=== PATIENT | male | born 1930 | race Caucasian/White ===

== ENCOUNTER → 2017-11-05 | Outpatient (CLI) | payer OTHER ==
[~2017-11-05] MED LIST: (None)64.8 MG PT; ACET325 PO; ALBU90OI INH; ALUMAG30SU PO; ASCO500 PO; ASPI81EC PO; AZIT250 PO; BISA10S PR; CALCAVITD PO; CEFU250 PO; CHOL10002 PO; CIPR500 PO; CITA20 PO; CVS DISPOSABLE399 ML PR; EXELON1 EACH TD; FERR325 PO; GABA100 PO; LEVFLO500 PO; LOPE2C PO; LORA.5 PO; MELA3 PO; METO25 PO; METO25ER PO; METR500 PO; MULVITMIND PO; Milk Of Ma400 MG/5 M PO; NAMENDA XR28 MG PO; NUEDEXTA 20-101 EACH PO; PHENO15 PO; PHENOBARBITAL PO; PHENY100ER PO; PHENY50CH PO; PROM25 PO; QUET25 PO; SACC250C PO; SIMV10 PO; SIMV40 PO; TRAZ50 PO; TRIHYD253B PO; TRIHYD5075 PO; Zithromax250 MG PO; [UNRECOGNIZED DRUG - REMARK]
[2017-11-06 14:12] LABS: Source, Urine Clean Catch
[2017-11-06 14:26] LABS: Appearance, Urine Clear (Clear); Bilirubin, Urine Neg (Neg); Blood, Urine 1+ (Neg); Color, Urine Yellow (P-Yellow); Glucose Qualitative, Urine Neg (Neg); Ketones, Urine Neg (Neg); Leukocyte Esterase, Urine Neg (Neg); Nitrite, Urine Neg (Neg); Protein, Urine 1+ (Neg); Specific Gravity, Urine 1.015 (1.003-1.022); Urobilinogen, Urine NORM (Normal); pH, Urine 6.5 (5.0-8.0)
[2017-11-06 14:50] LABS: Bacteria Few /hpf; Squamous Epithelial Cells Rare /hpf (Few); White Blood Cells, Urine 0-2 /hpf (0-5)
== END ==
LOC: LAB SHORT 20:50 → LAB 20:50
PROVIDERS: Family Medicine
DX: N39.0 Urinary tract infection, site not specified (principal)
CPT/HCPCS: 81001

== ENCOUNTER → 2017-12-13 | Outpatient (CLI) | payer OTHER ==
[~2017-12-13] MED LIST changes: -LEVFLO500 PO; -METR500 PO
[2017-12-14 15:55] LABS: Source, Urine Clean Catch
[2017-12-14 16:05] LABS: Appearance, Urine Clear (Clear); Bilirubin, Urine Neg (Neg); Blood, Urine 2+ (Neg); Color, Urine Yellow (P-Yellow); Glucose Qualitative, Urine Neg (Neg); Ketones, Urine Neg (Neg); Leukocyte Esterase, Urine Neg (Neg); Nitrite, Urine Neg (Neg); Protein, Urine 1+ (Neg); Specific Gravity, Urine 1.015 (1.003-1.022); Urobilinogen, Urine NORM (Normal); pH, Urine 6.5 (5.0-8.0)
[2017-12-14 16:38] LABS: Bacteria Not Seen /hpf; Red Blood Cells, Urine 0-2 /hpf (0-2); Squamous Epithelial Cells Not Seen /hpf (Few); White Blood Cells, Urine Not Seen /hpf (0-5)
== END | disposition home or self-care (01) ==
LOC: LAB SHORT 15:00 → LAB 15:00
PROVIDERS: Family Medicine
DX: N39.0 Urinary tract infection, site not specified (principal); F03.90 Unspecified dementia, unspecified severity, without behavioral disturbance, psychotic disturbance, mood disturbance, and anxiety
CPT/HCPCS: 81001

== ENCOUNTER 2018-05-05 13:45 | Inpatient (IN) | payer OTHER ==
[~2018-05-05] VITALS: Ht 177.8 cm; Wt 83.8 kg
[2018-05-05] MEDS ORDERED: MELA3 PO (14:11)
[2018-05-05 14:26] LABS: BASOPHILS ABSOLUTE AUTO 0.03 K/mm3 (0.00-0.23); BASOPHILS PERCENT AUTO 0 % (0-2); EOSINOPHILS ABSOLUTE AUTO 0.06 K/mm3 (0.00-0.68); EOSINOPHILS PERCENT AUTO 1 % (0-6); Hematocrit 41.7 % (37.0-53.0); Hemoglobin 13.3 g/dL (13.5-17.5); IMMATURE GRAN ABSOLUTE AUTO 0.02 K/mm3 (0.00-0.10); IMMATURE GRAN PERCENT AUTO 0 % (0-1); LYMPHOCYTES ABSOLUTE AUTO 1.13 K/mm3 (0.84-5.20); LYMPHOCYTES PERCENT AUTO 11 % (21-46); MONOCYTES ABSOLUTE AUTO 0.25 K/mm3 (0.16-1.47); MONOCYTES PERCENT AUTO 2 % (4-13); Mean Corpuscular HGB 31.7 pg (26.0-34.0); Mean Corpuscular HGB Conc 31.9 g/dL (31.5-36.5); Mean Corpuscular Volume 99 fL (80-100); NEUTROPHILS ABSOLUTE AUTO 9.27 K/mm3 (1.96-9.15); NEUTROPHILS PERCENT AUTO 86 % (41-73); Platelet Count 183 K/mm3 (150-400); RDW Coefficient Variation 14.4 % (11.7-14.2); RDW Standard Deviation 52.7 fL (35.1-46.3); White Blood Cell Count 10.76 K/mm3 (4.00-11.30)
[2018-05-05 14:40] LABS: Dilantin (Phenytoin), Total 9.6 ug/mL (10.0-20.0)
[2018-05-05 14:41] LABS: Alanine Aminotransfer (ALT/SGP 25 U/L (12-78); Albumin, Blood 3.4 g/dL (3.4-5.0); Albumin/Globulin Ratio 0.7 (0.8-1.8); Alk Phos 155 U/L (50-136); Anion Gap 6 mmol/L (6-16); Aspartate Aminotrans (AST/SGOT 32 U/L (12-37); Bilirubin, Total 0.3 mg/dL (0.1-1.0); Blood Urea Nitrogen 22 mg/dL (8-24); Bun/Creatinine Ratio 17.3 (12.0-20.0); CO2, Blood 26 mmol/L (21-32); Calcium, Blood 8.5 mg/dL (8.5-10.1); Chloride, Blood 109 mmol/L (98-108); Creatinine, Blood 1.27 mg/dL (0.60-1.20); Globulin, Blood 4.7 g/dL (2.2-4.0); Glomerular Filtration Rate 57 (60-); Glucose, Blood 110 mg/dL (70-99); Potassium, Blood 4.9 mmol/L (3.5-5.5); Sodium, Blood 141 mmol/L (136-145); Total Protein, Blood 8.1 g/dL (6.4-8.2)
[2018-05-06 05:15] LABS: BASOPHILS ABSOLUTE AUTO 0.01 K/mm3 (0.00-0.23); BASOPHILS PERCENT AUTO 0 % (0-2); Hematocrit 36.1 % (37.0-53.0); Hemoglobin 11.6 g/dL (13.5-17.5); LYMPHOCYTES ABSOLUTE AUTO 1.24 K/mm3 (0.84-5.20); LYMPHOCYTES PERCENT AUTO 12 % (21-46); MONOCYTES ABSOLUTE AUTO 0.57 K/mm3 (0.16-1.47); MONOCYTES PERCENT AUTO 5 % (4-13); Mean Corpuscular HGB 30.8 pg (26.0-34.0); Mean Corpuscular HGB Conc 32.1 g/dL (31.5-36.5); Mean Platelet Volume 10.5 fL (9.1-12.4); Platelet Count 174 K/mm3 (150-400); RDW Coefficient Variation 14.4 % (11.7-14.2); RDW Standard Deviation 50.8 fL (35.1-46.3); Red Blood Cell Count 3.77 M/mm3 (4.30-5.90); White Blood Cell Count 10.71 K/mm3 (4.00-11.30)
[2018-05-06 05:35] LABS: EOSINOPHILS ABSOLUTE AUTO 0.02 K/mm3 (0.00-0.68); EOSINOPHILS PERCENT AUTO 0 % (0-6); IMMATURE GRAN ABSOLUTE AUTO 0.02 K/mm3 (0.00-0.10); IMMATURE GRAN PERCENT AUTO 0 % (0-1); Mean Corpuscular Volume 96 fL (80-100); NEUTROPHILS ABSOLUTE AUTO 8.85 K/mm3 (1.96-9.15); NEUTROPHILS PERCENT AUTO 83 % (41-73)
[2018-05-06 05:41] LABS: Albumin, Blood 2.7 g/dL (3.4-5.0); Albumin/Globulin Ratio 0.7 (0.8-1.8); Bilirubin, Total 0.2 mg/dL (0.1-1.0); Bun/Creatinine Ratio 16.5 (12.0-20.0); Calcium, Blood 7.8 mg/dL (8.5-10.1); Creatinine, Blood 1.27 mg/dL (0.60-1.20); Globulin, Blood 3.9 g/dL (2.2-4.0); Potassium, Blood 4.2 mmol/L (3.5-5.5); Total Protein, Blood 6.6 g/dL (6.4-8.2)
[2018-05-06] MEDS ORDERED: METR500 PO (13:24)
[2018-05-06] MEDS ORDERED: LEVFLO500 PO (13:24)
== END 2018-05-06 15:14 | disposition home health service (06) | DRG 392 ==
LOC: ER 13:45 → MEDS 18:04 → ENPENDDIS 05-06 13:04 → MEDS 05-06 15:14
PROVIDERS: Internal Medicine
DX: K52.9 Noninfective gastroenteritis and colitis, unspecified (principal); I50.32 Chronic diastolic (congestive) heart failure; N17.9 Acute kidney failure, unspecified; G40.909 Epilepsy, unspecified, not intractable, without status epilepticus; I25.10 Atherosclerotic heart disease of native coronary artery without angina pectoris; K57.90 Diverticulosis of intestine, part unspecified, without perforation or abscess without bleeding; F03.90 Unspecified dementia, unspecified severity, without behavioral disturbance, psychotic disturbance, mood disturbance, and anxiety; I34.0 Nonrheumatic mitral (valve) insufficiency; K21.9 Gastro-esophageal reflux disease without esophagitis; F32.9 Major depressive disorder, single episode, unspecified; E78.5 Hyperlipidemia, unspecified; Z96.642 Presence of left artificial hip joint; Z66 Do not resuscitate; E86.0 Dehydration; I11.0 Hypertensive heart disease with heart failure
CPT/HCPCS: 36415; 71046; 74177; 80053; 80184; 80185; 83605; 85025; 87040; 87076; 87185; 87493; 93005; 93010; 96361; 96365; 96367; 97161; 99285-25; G8978; G8979; G8980; J0744; J1956; J7030; J7120; Q9967

== ENCOUNTER → 2018-09-23 | Outpatient (CLI) | payer OTHER ==
[~2018-09-23] MED LIST changes: +LEVFLO500 PO; +METR500 PO
[2018-09-23 20:00] LABS: Bilirubin, Urine Neg (Neg); Blood, Urine Neg (Neg); Glucose Qualitative, Urine Neg (Neg); Ketones, Urine Neg (Neg); Leukocyte Esterase, Urine Neg (Neg); Nitrite, Urine Neg (Neg); Protein, Urine 2+ (Neg); Urobilinogen, Urine NORM (Normal)
[2018-09-23 20:08] LABS: Color, Urine Yellow (P-Yellow)
[2018-09-23 20:10] LABS: Appearance, Urine Clear (Clear)
[2018-09-23 20:11] LABS: Bacteria Few /hpf; Mucus Light (0-Heavy); Red Blood Cells, Urine 0-2 /hpf (0-2); Squamous Epithelial Cells Few /hpf (Few)
[2018-09-23 20:12] LABS: White Blood Cells, Urine 0-2 /hpf (0-5)
== END | disposition home or self-care (01) ==
LOC: LAB SHORT 19:23 → LAB 19:23
PROVIDERS: Family Medicine
DX: N39.0 Urinary tract infection, site not specified (principal)
CPT/HCPCS: 81001

== ENCOUNTER → 2018-10-01 | Outpatient (CLI) | payer OTHER ==
[2018-10-01 18:19] LABS: BASOPHILS ABSOLUTE AUTO 0.04 K/mm3 (0.00-0.23); BASOPHILS PERCENT AUTO 1 % (0-2); EOSINOPHILS ABSOLUTE AUTO 0.22 K/mm3 (0.00-0.68); EOSINOPHILS PERCENT AUTO 3 % (0-6); Hematocrit 36.1 % (37.0-53.0); IMMATURE GRAN ABSOLUTE AUTO 0.03 K/mm3 (0.00-0.10); IMMATURE GRAN PERCENT AUTO 0 % (0-1); LYMPHOCYTES ABSOLUTE AUTO 2.44 K/mm3 (0.84-5.20); LYMPHOCYTES PERCENT AUTO 29 % (21-46); MONOCYTES ABSOLUTE AUTO 0.75 K/mm3 (0.16-1.47); MONOCYTES PERCENT AUTO 9 % (4-13); Mean Corpuscular HGB 31.4 pg (26.0-34.0); Mean Corpuscular HGB Conc 33.2 g/dL (31.5-36.5); Mean Corpuscular Volume 95 fL (80-100); Mean Platelet Volume 10.3 fL (9.1-12.4); NEUTROPHILS ABSOLUTE AUTO 5.03 K/mm3 (1.96-9.15); NEUTROPHILS PERCENT AUTO 59 % (41-73); Platelet Count 223 K/mm3 (150-400); RDW Coefficient Variation 14.3 % (11.7-14.2); Red Blood Cell Count 3.82 M/mm3 (4.30-5.90); White Blood Cell Count 8.51 K/mm3 (4.00-11.30)
[2018-10-01 18:36] LABS: Alanine Aminotransfer (ALT/SGP 14 U/L (12-78); Albumin, Blood 3.6 g/dL (3.4-5.0); Albumin/Globulin Ratio 0.8 (0.8-1.8); Alk Phos 137 U/L (40-126); Anion Gap 11 mmol/L (6-16); Aspartate Aminotrans (AST/SGOT 24 U/L (12-37); Bilirubin, Total 0.2 mg/dL (0.1-1.0); Blood Urea Nitrogen 16 mg/dL (8-24); CO2, Blood 26 mmol/L (21-32); Chloride, Blood 101 mmol/L (98-108); Creatinine, Blood 1.07 mg/dL (0.60-1.20); Globulin, Blood 4.3 g/dL (2.2-4.0); Glomerular Filtration Rate >60 (60-); Glucose, Blood 94 mg/dL (70-99); Potassium, Blood 4.9 mmol/L (3.5-5.5); Sodium, Blood 138 mmol/L (136-145); Total Protein, Blood 7.9 g/dL (6.4-8.2)
== END | disposition home or self-care (01) ==
LOC: LAB SHORT 18:15 → LAB EV 18:15
PROVIDERS: Physician Assistant
DX: R05 Cough (principal)
CPT/HCPCS: 80053; 83880; 85025

== ENCOUNTER 2018-12-25 07:18 | Emergency (ER) | payer OTHER ==
[~2018-12-25] VITALS: Ht 177.8 cm; Wt 78.0 kg
[2018-12-25] MEDS ORDERED: AMOCLA400S PO (10:13)
[2018-12-25] MEDS ORDERED: Tussin Dm Clea118 ML PO (10:13)
[2018-12-26] MEDS ORDERED: PROBIOTIC1 EAC4 PO (23:55)
[2018-12-26] MEDS ORDERED: ALBU90OI61 INH (23:56)
[2018-12-26] MEDS ORDERED: Acetaminophen325 M1 PO (23:58)
== END 2018-12-25 12:05 | disposition home or self-care (01) ==
LOC: ER 07:18
DX: J18.9 Pneumonia, unspecified organism (principal); I10 Essential (primary) hypertension; I25.10 Atherosclerotic heart disease of native coronary artery without angina pectoris; F32.9 Major depressive disorder, single episode, unspecified; G40.909 Epilepsy, unspecified, not intractable, without status epilepticus; F03.90 Unspecified dementia, unspecified severity, without behavioral disturbance, psychotic disturbance, mood disturbance, and anxiety; Z91.018 Allergy to other foods; Z91.012 Allergy to eggs; Z79.899 Other long term (current) drug therapy
CPT/HCPCS: 36415; 71045; J0696; J7030

== ENCOUNTER 2018-12-26 18:00 | Inpatient (IN) | payer OTHER ==
[~2018-12-26] VITALS: Ht 177.8 cm; Wt 79.1 kg
[~2018-12-26 18:00] MED LIST changes: +AMOCLA400S PO; +Tussin Dm Clea118 ML PO
[2018-12-26 18:27] LABS: PCO2 Arterial 51.8 mmHg (35-45); PO2 Arterial 114 mmHg (80-100); pH Blood Arterial 7.31 (7.35-7.45)
[2018-12-26 18:42] LABS: BASOPHILS ABSOLUTE AUTO 0.02 K/mm3 (0.00-0.23); BASOPHILS PERCENT AUTO 0 % (0-2); EOSINOPHILS ABSOLUTE AUTO 0.06 K/mm3 (0.00-0.68); EOSINOPHILS PERCENT AUTO 1 % (0-6); Hematocrit 33.7 % (37.0-53.0); Hemoglobin 10.6 g/dL (13.5-17.5); IMMATURE GRAN ABSOLUTE AUTO 0.02 K/mm3 (0.00-0.10); IMMATURE GRAN PERCENT AUTO 0 % (0-1); LYMPHOCYTES PERCENT AUTO 23 % (21-46); MONOCYTES ABSOLUTE AUTO 0.56 K/mm3 (0.16-1.47); MONOCYTES PERCENT AUTO 8 % (4-13); Mean Corpuscular HGB 31.5 pg (26.0-34.0); Mean Corpuscular HGB Conc 31.5 g/dL (31.5-36.5); Mean Corpuscular Volume 100 fL (80-100); Mean Platelet Volume 10.1 fL (9.1-12.4); NEUTROPHILS ABSOLUTE AUTO 5.11 K/mm3 (1.96-9.15); NEUTROPHILS PERCENT AUTO 68 % (41-73); Platelet Count 153 K/mm3 (150-400); RDW Coefficient Variation 15.2 % (11.7-14.2); RDW Standard Deviation 56.8 fL (35.1-46.3); Red Blood Cell Count 3.37 M/mm3 (4.30-5.90); White Blood Cell Count 7.47 K/mm3 (4.00-11.30)
[2018-12-26 18:56] LABS: Alanine Aminotransfer (ALT/SGP 13 U/L (12-78); Albumin/Globulin Ratio 0.6 (0.8-1.8); Alk Phos 117 U/L (50-136); Anion Gap 6 mmol/L (6-16); Aspartate Aminotrans (AST/SGOT 21 U/L (12-37); Bilirubin, Total 0.2 mg/dL (0.1-1.0); Blood Urea Nitrogen 18 mg/dL (8-24); Bun/Creatinine Ratio 20.2 (12.0-20.0); CO2, Blood 24 mmol/L (21-32); Calcium, Blood 8.8 mg/dL (8.5-10.1); Chloride, Blood 105 mmol/L (98-108); Creatinine, Blood 0.89 mg/dL (0.60-1.20); Glomerular Filtration Rate >60 (60-); Glucose, Blood 120 mg/dL (70-99); Potassium, Blood 4.9 mmol/L (3.5-5.5); Sodium, Blood 135 mmol/L (136-145)
[2018-12-26 23:22] LABS: Source, Urine Catheter
[2018-12-26 23:24] LABS: Bilirubin, Urine Neg (Neg); Blood, Urine Neg (Neg); Glucose Qualitative, Urine Neg (Neg); Ketones, Urine Neg (Neg); Leukocyte Esterase, Urine Neg (Neg); Nitrite, Urine Neg (Neg); Protein, Urine 1+ (Neg); Urobilinogen, Urine NORM (Normal)
[2018-12-26 23:30] LABS: Appearance, Urine Clear (Clear); Color, Urine Yellow (P-Yellow)
--- NOTE | 2018-12-26 23:30 | NUR ---
PT ARRIVES TO ICU 8 VIA GURNEY FROM ER FOR DIAGNOSIS OF RESPIRATORY FAILURE WITH HYPOXIA. PT IS AWAKE BUT DOES NOT RESPOND VERBALLY, HOLDS ARMS IN AT SIDES HOWEVER DOES RELAX WITH REQUEST TO STRAIGHTEN ARM. SONS ARRIVE AT BEDSIDE. PT RESP RATE HIGH TEENS TO LOW 20S, LUNGS COARSE THROUGHOUT, PER SONS PT HAS OCCASIONALLY COUGHED UP SPUTUM THAT HE WILL NEITHER SWALLOW NOR SPIT OUT CAUSING HIM TO GAG AND VOMIT, SATS ARE HIGH 90S WITH OXYGEN AT 5 L/MIN VIA NC, TITRATED DOWN TO 4 L/MIN AT THIS TIME, WILL MONITOR, NO INCREASED WORK OF BREATHING IS NOTED AT THIS TIME. HRR, SINUS WITH FIRST DEGREE BLOCK NOTED ON MONITOR, RATE 60S, SYSTOLIC PRESSURE LOW 100S, MAP MAINTAINING AT THIS TIME, PULSES FULL X 4 EXTREMITIES, GOOD URINE OUTPUT IN STAPLES CATHETER DRAINAGE BAG, SKIN PALE WARM AND DRY, TRACE PEDAL EDEMA, NONPITTING. NORMOACTIVE BOWEL TONES ARE NOTED, ABD SOFT, NO GRIMACING/GAURDING WITH PALPATION. IV ACCESS NOTED TO LEFT HAND 22 G SALINE LOCK, SITE WNL, 18 G TO RIGHT AC, SITE WNL, DRESSING CDI.
[2018-12-26 23:40] LABS: PO2 Arterial 62.4 mmHg (80-100); pH Blood Arterial 7.31 (7.35-7.45)
[2018-12-26] MEDS ORDERED: PROBIOTIC1 EAC4 PO (23:55)
[2018-12-26] MEDS ORDERED: ALBU90OI61 INH (23:56)
[2018-12-26] MEDS ORDERED: Acetaminophen325 M1 PO (23:58)
[2018-12-27] MEDS ORDERED: Magnesium-Alum360 ML PO (00:02)
[2018-12-27] MEDS ORDERED: CVS DISPOSABLE399 ML (00:04)
[2018-12-27] MEDS ORDERED: Anti-Diarrheal2 MG PO (00:05)
[2018-12-27] MEDS ORDERED: LORA.5 PO (00:05)
[2018-12-27] MEDS ORDERED: Milk Of Ma400 MG/5 M PO (00:07)
[2018-12-27] MEDS ORDERED: PROC5 PO (00:07)
[2018-12-27] MEDS ORDERED: Tussin Dm Clea118 ML PO (00:08)
[2018-12-27] MEDS ORDERED: CEPH500 PO (00:12)
--- NOTE | 2018-12-27 03:54 | NUR ---
HYPOTENSION SPOKE WITH DR HARRISON REGARDING PT BP WHILE SLEEPING COMPARED TO PRESSURE WITH MINIMAL INCREASES IN STIMULI IN ROOM. PT DOES CONTINUE TO MAKE URINE, IS EASILY AROUSABLE, AND HAS FULL RADIAL AND PEDAL PULSES. WILL CONT TO MONITOR PER MD INSTRUCTIONS.
[2018-12-27 04:03] LABS: Hematocrit 29.4 % (37.0-53.0); Hemoglobin 9.5 g/dL (13.5-17.5); Mean Corpuscular HGB 31.7 pg (26.0-34.0); Mean Corpuscular HGB Conc 32.3 g/dL (31.5-36.5); Mean Corpuscular Volume 98 fL (80-100); Platelet Count 130 K/mm3 (150-400); RDW Coefficient Variation 15.2 % (11.7-14.2); RDW Standard Deviation 54.8 fL (35.1-46.3); White Blood Cell Count 14.53 K/mm3 (4.00-11.30)
[2018-12-27 04:27] LABS: Alanine Aminotransfer (ALT/SGP 10 U/L (12-78); Albumin, Blood 2.6 g/dL (3.4-5.0); Albumin/Globulin Ratio 0.6 (0.8-1.8); Alk Phos 97 U/L (50-136); Anion Gap 8 mmol/L (6-16); Aspartate Aminotrans (AST/SGOT 17 U/L (12-37); Bilirubin, Total 0.3 mg/dL (0.1-1.0); Blood Urea Nitrogen 15 mg/dL (8-24); Bun/Creatinine Ratio 18.3 (12.0-20.0); CO2, Blood 25 mmol/L (21-32); Chloride, Blood 106 mmol/L (98-108); Creatinine, Blood 0.82 mg/dL (0.60-1.20); Dilantin (Phenytoin), Total 17.1 ug/mL (10.0-20.0); Globulin, Blood 4.3 g/dL (2.2-4.0); Glomerular Filtration Rate >60 (60-); Glucose, Blood 173 mg/dL (70-99); Sodium, Blood 139 mmol/L (136-145); Total Protein, Blood 6.9 g/dL (6.4-8.2)
[2018-12-27 05:30] LABS: Adenovirus Not Detected (NOT DETECT); Bordetella pertussis Not Detected (NOT DETECT); Chlamydophila pneumoniae Not Detected (NOT DETECT); Coronavirus 229E Not Detected (NOT DETECT); Coronavirus HKU1 Not Detected (NOT DETECT); Coronavirus NL63 Not Detected (NOT DETECT); Coronavirus OC43 Not Detected (NOT DETECT); Human Metapneumovirus Not Detected (NOT DETECT); Human Rhinovirus/Enterovirus Not Detected (NOT DETECT); Influenza A Not Detected (NOT DETECT); Influenza A/2009-H1 Not Detected (NOT DETECT); Influenza A/H1 Not Detected (NOT DETECT); Influenza A/H3 Not Detected (NOT DETECT); Influenza B Not Detected (NOT DETECT); Mycoplasma pneumoniae Not Detected (NOT DETECT); Parainfluenza Virus 1 Not Detected (NOT DETECT); Parainfluenza Virus 2 Not Detected (NOT DETECT); Parainfluenza Virus 3 Not Detected (NOT DETECT); Parainfluenza Virus 4 Not Detected (NOT DETECT); Respiratory Syncytial Virus Not Detected (NOT DETECT)
--- NOTE | 2018-12-27 06:05 | NUR ---
PT IS AWAKE AND LOOKING AROUND ROOM, CONVERSATIONAL WITH STAFF, PHRASES ARE SHORT BUT HE DOES REPEAT THEM WELL WHEN ASKED. SON REMAINS AT BEDSIDE. LUNGS CONTINUE COARSE THROUGHOUT, SATS MAINTAINING MID 90S WITH OXYGEN AT 3 L/MIN VIA NC, OCCASIONAL COUGH IS NOTED, NO VISIBLE SPUTUM AT THIS TIME, PO SUCTIONING PROVIDED, WHITE ORAL CASTINGS REMOVED. HRR, SINUS WITH FIRST DEGREE BLOCK CONTINUES, BP IMPROVED. ABD SOFT, ACTIVE BOWEL TONES. STAPLES DRAINING CLEAR YELLOW URINE TO GRAVITY, COLOR IMPROVING.
--- NOTE | 2018-12-27 07:50 | NUR ---
ASSUMED CARE: DR LAZARO CAME IN TO SEE PT WITH FAMILY AT BEDSIDE. PLAN FOR PCU STATUS, MANAGER FUND AWARE. PT APPEARS TIRED BUT COOPERATIVE. SLOW TO RESPOND AT THIS TIME.
--- NOTE | 2018-12-27 09:03 | NUR ---
ATTEMPTED TO GIVE ORAL MEDS. STARTED WHOLE WITH APPLESAUCE, PT DOES NOT REALIZE TO SWALLOW AND JUST KEEPS IT IN HIS MOUTH. CRUSHED MEDS AND THEY WENT DOWN BUT REMAINING APPLESAUCE NEEDED TO BE SUCTIONED OUT BECAUSE PT DOES NO FOLLOW INSTRUCTIONS TO SWALLOW. SPEECH THERAPIST AWARE AND AT BEDSIDE AT THIS TIME.
--- NOTE | 2018-12-27 13:16 | NUR ---
Initial palliative care consult: Bear is an 88 year old gentleman who resides at [facility]. He and his are both at [facility] in different sections. He has a history of CAD, epilepsy, CHF, vascular dementia. Per family approximately 10-14 days ago pt is believed to have a seizure or possibly a CVA. Family reports prior to this event, Bear was able to feed himself although he has had trouble with aspiration for years according to his sons. He was ambulating with a walker to the dining room for meals. Over the past 1-2 weeks he has become bedbound, unable to feed himself and has been having difficulty swallowing when his son has been able to feed him. He is less alert and talking less than he normally did. He also used to sing and family states that he isn't singing anymore. Family acknowledges a repeated pattern of aspiration pneumonia with hospital stays that has happened over the past several years. They note a rapid decline the past 1-2 weeks. Bear is currently being treated for aspiration pneumonia. Discussed current treatment plan, pt's POLST on file (DNR, limited treatments, trial of TF) and pt's failed ST eval this morning. Family is hopeful that he will be able to recover from his pneumonia, however they are open to the option of hospice if he continues to decline or if his swallow doesn't improve. Discussed disease trajectory of dementia and quality of life. Pt has seven children, three of whom are present today. Questions answered. Discussed risks/benefits of feeding tubes with end-stage dementia. Provided family with a copy of considering comfort care booklet and an article on artificial nutrition in end stage dementia per their request. Plan will be to continue IV fluids and antibiotics at this time and to re-eval swallow in the next few days. Even if Bear improves in respect to his aspiration pneumonia, will need to talk with family about future care planning and the option of hospice. If hospice is not chosen, pt will continue to be readmitted for recurrent aspiration pneumonia. Karnofsky performance status = 40% Palliative performance scale = 30 FAST score = 7C Palliative prognostic index = score of 5
--- NOTE | 2018-12-27 15:27 | NUR ---
CALL TO DR LAZARO TO UPDATE ON SPEECH THERAPY'S EVALUATION AND THAT PT IS TO BE COMPLETELY NPO FOR NOW. TOLD HIM ABOUT TRIAL THIS AM AND HOW PT DID NOT KNOW TO SWALLOW AND POCKETED APPLESAUCE ALL OVER IN MOUTH. STATES HE WILL CHANGE MEDS IN [facility] AND PT IS TO REMAIN COMPLETELY NPO AT THIS TIME PER SPEECH'S RECOMMENDATIONS. NPO SIGN ON DOOR
--- NOTE | 2018-12-27 17:37 | NUR ---
I met with Mr. Javed son, Al, at bedside. 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 His mom has dementia and Al has been alone in managing his parent's care. Al has siblings but says "I am the only one who has the time to do this." Al is hoping to get his dad on comfort measures. He is very familiar with hospice services. Al reports that "nearly all" his siblings agree pt is nearing end-of-life and want his comfortable. I supported and affirmed Al's love and devotion. He is showing some signs of care-pattern illustrator stress, and I encouraged more self-care. I also offered tariff counsel to the siblings who are not on-board with POC. We prayed together for a peaceful transition. I will remain available.
--- NOTE | 2018-12-27 18:01 | NUR ---
SHIFT SUMMARY: PT REMAINS NPO THIS SHIFT DUE TO ASPIRATION RISK. ST TO EVALUATE TOMORROW TO DETERMINE IF HE IS TO REMAIN NPO. FAMILY AT BEDSIDE AND ON BOARD WITH PLAN. PLAN IS TO GIVE PT A COUPLE DAYS TO DETERMINE IF HE IS ABLE TO SWALLOW BETTER IN NEXT FEW DAYS AND TREAT THE PNEUMONIA IN THE MEAN TIME. IF NOT, MAY GO COMFORT CARE. PALLIATIVE CARE HAS BEEN AT BEDSIDE OFF AND ON THIS SHIFT.
--- NOTE | 2018-12-27 19:30 | NUR ---
ASSUMED CARE PT RESTING QUIETLY RECLINING IN BED WITH FAMILY AT BEDSIDE, PT IS ALERT AND OCCASIONALLY SPEAKS A FEW WORDS AT A TIME. SMILES AT STAFF AND FAMILY AT BEDSIDE. WEAK COUGH IS NOTED, SOUNDS LOOSE HOWEVER NO SPUTUM IS PRODUCED AT THIS TIME. LUNGS ARE COARSE THROUGHOUT, RESP RATE LOW 20S, SATS 100% WITH OXYGEN AT 5 L/MIN VIA NC, TITRATED DOWN TO 4 L/MIN AND REMAINED AT 100%, TITRATED DOWN TO 2 L/MIN AND SATS ARE NOW 97-98% WILL CONT TO MONITOR AND TITRATE DOWN ABLE. HRR, SINUS WITH FIRST DEGREE BLOCK ON MONITOR, PRESSURES IMPROVED, MAP MAINTAINING GREATER THAN 70 AT THIS TIME, PULSES FULL X 4 EXTREMITIES, CAP REFILL BRISK, TRACE PEDAL EDEMA CONTINUES. TEMP PROBE STAPLES REMAINS IN PLACE DRAINING CLEAR YELLOW URINE TO GRAVITY, TEMP NOTED AT 100.2, PT HAS MULTIPLE BLANKETS IN PLACE, BLANKETS FOLDED DOWN TO WAIST WILL MONITOR. IV ACCESS NOTED 18 G TO RIGHT AC INFUSING NS AT TKO, FLUSHES WELL, SITE WNL, DRESSING CDI, 22 G TO LEFT HAND INFUSING NS AT TKO, SITE WNL, FLUSHES WELL, DRESSING CDI.
--- NOTE | 2018-12-27 23:30 | NUR ---
ASSUMED CARE REPORT TAKEN FROM TUBER HELPER. PT TO UNIT AND TRASNFERED TO BED WITH SLIDE SHEET. PT AOX2 RESPONDS TO VERBAL SLOWLY. RESP EVEN UNLABORED ON 2.5L 02, W/ SATS >92%, VERY WET UNPRODUCTIVE COUGH NOTED. STAPLES CATH IN PLACE AN DRAINING YELLOW URINE. MEPILEX PLACED TO BILAT GREAT TOE FOR SKIN PROTECTION D/T REDNESS NOTED. PT HAS BILAT IVF INFUING IN 18G IV TO RAC AND 22G IV TO LH. PT HAS FAMILY AT BEDSIDE. CALL LIGHT IS WITHIN REACH. BED ALARM ON FOR SAFETY.
--- NOTE | 2018-12-28 06:29 | NUR ---
SHIFT SUMMARY PT SLEEPING IN ROOM COMFORTABLY AT THIS TIME. NO ACUTE CHANGES SINCE ARRIVAL TO UNIT. PT WAS REPOSITIONED Q2HR. MEPILEX TO COCYX NOTED. PILLOWS UNDER HIPS FOR PT COMFORT. PT IS AOX2 RESPONSIVE TO VERBAL, BUT SLOW TO RESPOND. ONLY RESPONDS IN SHORT SENTENCES, AND HARD TO UNDERSTAND. PT HAS HAD FAMILY AT BEDSIDE UNTIL 5AM THIS AM. MORE FAMILY TO ARRIVE TO BE WITH PT THIS AM. IVF TKO IN PIV. PT APPEARS NOT TO HAVE ANY PAIN BASED ON PHYSICAL CUES. BED ALARM PHOTOVOLTAIC TESTING TECHNICIAN LIGHT IN REACH.
[2018-12-28 06:41] LABS: Vancomycin, Trough 27.9 ug/mL (5.0-10.0)
--- NOTE | 2018-12-28 11:16 | NUR ---
Met with Dale's son and DIL this morning. Dale had another speech therapy visit today and his swallow remains impaired. Family has chosen to pursue comfort measures at this time. Family is requesting [facility] to follow pt at [facility]. Manda Cisneros notified of pt's family request and she states she will start getting hospice plans organized. Spoke with Dr. Faria and Marcus, pharmacist, about pt's anti-seizure meds. Dr. Faria would like to continue IV anti-seizure meds in the hospital, and will plan to transition pt to [place] anti-seizure meds when he goes home to [facility] with hospice care. Dale is awake, and alert this morning. He is able to say one or two words that are recognizable. He smiles brightly at family who are at the bedside. He doesn't appear to be in any distress. O2 was weaned earlier and tele removed. Lemon glycerin swabs are at bedside as well as suction euipment. Family is appreciative of care and are aware that he will be moved upstairs to medical floor when a bed becomes available.
--- NOTE | 2018-12-28 12:47 | NUR ---
Left comfort care booklet and information on [facility] with pt's son, Al. Al stated that the written materials that PC RN provided to him yesterday were very helpful for his brother Orlin in making the decision to transition to comfort care. Dale is currently sleeping and appears to be very comfortable.
--- NOTE | 2018-12-28 17:52 | NUR ---
Dale's three sons are at his bedside. He is calm and appears to be comfortable at this time. He smiles easily. Al reports plan is for discharge back to [facility] on with [facility] services. Family voices no requests or concerns at this time.
--- NOTE | 2018-12-28 19:29 | NUR ---
PT HAD A GOOD DAY, HE HAS CONTINUED TO BE CALM AND COMFORTABLE THROUGHOUT THE SHIFT. THIS MORNING FAMILY INFORMED THIS NURSE THAT THE WOULD LIKE TO TRANSITION PT TO HOSPICE AND TRANSFER BACK TO [facility] IN [place]. DR. LAZARO IN TO SEE FAMILY AND CHANGE TO COMFORT CARE. FAMILY AT BEDSIDE AND VERY SUPPORTIVE. PT WARM TO TOUCH DURING SHIFT, USED COOL CLOTH ON FOREHEAD, PT GIVEN PAIN MEDICATION TO ADDRESS PAIN IN CHEST. STAPLES CATH IN PLACE FOR PREVENTION OF SKIN BREAKDOWN AND ONE IV IN PLACE IN RT AC FOR ACCESS TO GIVE IV MEDS PER EM[facility]. WILL GIVE REPORT TO NOC RN.
--- NOTE | 2018-12-29 07:27 | NUR ---
SENIOR CYTOGENETICS LABORATORY DIRECTOR SUMMARY NO ACUTE CHANGES. PT AAOX1. MINIMALLY RESPONSIVE BUT DOES RESPOND WITH YES/NO ANSWERS AT TIMES. PT DENIES PAIN T/O SHIFT. REPOSITIONED Q2H. PT HAD SOME SECRETIONS, SUCTIONED WITH HELP OF PT'S SONS WHO WERE AT BEDSIDE THROUGH THE NIGHT. PT STAPLES PATENT AND DRAINING. PT HAD BM AT END OF SHIFT. REPORT GIVEN TO ONCOMING RN.
--- NOTE | 2018-12-29 08:09 | NUR ---
PATIENT AWAKE WITH FAMILY AT BEDSIDE. FAMILY DENIES ANY NEEDS AT THIS TIME. NO S/S OF PAIN OR DISCOMFORT ASSESSED. TURNING PATIENT Q2 HOURS. FAMILY INSTRUCTED TO CALL WITH ANY QUESTIONS OR CONCERNS.
--- NOTE | 2018-12-29 10:21 | NUR ---
MANDA KIRK AT BEDSIDE. ORAL CARE COMPLETED AND PATIENT REPOSITIONED. PATIENT RESTING COMFORTABLY, NO S/S OF PAIN OF DISCOMFORT.
--- NOTE | 2018-12-29 12:25 | NUR ---
MANDA KIRK REMAINS AR BEDSIDE AND ASSISTING WITH CARE. PATIENT REPOSITIONED TO L SIDE. NO S/S OF PAIN OR DISCOMFORT.
--- NOTE | 2018-12-29 15:01 | NUR ---
Large, loving family presence at bedside. They are tearful and appropriate. I provided prayer and affirmation of obvious love. All report peace with POC. I will remain available.
--- NOTE | 2018-12-29 17:04 | NUR ---
PATIENT REPOSITIONED, ORAL CARE COMPLETED AND PATIENT SUCTIONED. FAMILY DENIES ANY FURTHER NEEDS AT THIS TIME. DENIES NEED FOR COMFORT CART REFILL.
--- NOTE | 2018-12-30 06:53 | NUR ---
LYING IN SEMI FOWLERS WITH EYES CLOSED WITH FAMILY AT BEDSIDE. NO C/O PAIN OR NAUSEA THIS SHIFT, IS COMFORT CARE. DENIES FURTHER NEEDS OR WANTS AT THIS TIME. TO BE D/C'D TO [facility] WITH HOSPICE TODAY. SAFETY MEASURES IN PLACE. WILL GIVE HAND OFF TO ONCOMING SHIFT USING SBAR.
--- NOTE | 2018-12-30 11:16 | NUR ---
PT HAS BEEN PICKED UP BY TRANSPORT TO RETURN TO [facility] ON COMFORT CARE. HE WAS MEDICATED WITH 5MG ROXINOL PRIOR TO MOVING TO [facility], SON HAS ALL BELONGINGS.
--- NOTE | 2018-12-31 19:59 | NUR ---
family left note for staff thanking them. forwarded to staff
== END 2018-12-30 11:22 | disposition home or self-care (01) | DRG 871 ==
LOC: ER 18:00 → PCU 21:14 → ICUE 21:14 → ERHOLD 21:14 → ICUE 23:30 → PCU 12-27 23:20
PROVIDERS: Emergency Medicine; Nurse Practitioner Acute Care; ADMIT Internal Medicine
PROC: 5A09357 Assistance with Respiratory Ventilation, Less than 24 Consecutive Hours, Continuous Positive Airway Pressure (ICD-10-PCS; principal; 2018-12-26)
DX: A41.9 Sepsis, unspecified organism (principal); J69.0 Pneumonitis due to inhalation of food and vomit; J96.02 Acute respiratory failure with hypercapnia; J96.01 Acute respiratory failure with hypoxia; E87.2 Acidosis; I50.32 Chronic diastolic (congestive) heart failure; I25.10 Atherosclerotic heart disease of native coronary artery without angina pectoris; I34.0 Nonrheumatic mitral (valve) insufficiency; Z96.642 Presence of left artificial hip joint; I95.9 Hypotension, unspecified; G40.909 Epilepsy, unspecified, not intractable, without status epilepticus; E78.5 Hyperlipidemia, unspecified; K21.9 Gastro-esophageal reflux disease without esophagitis; Z66 Do not resuscitate; G30.9 Alzheimer's disease, unspecified; F02.80 Dementia in other diseases classified elsewhere, unspecified severity, without behavioral disturbance, psychotic disturbance, mood disturbance, and anxiety; I11.0 Hypertensive heart disease with heart failure
CPT/HCPCS: 36415; 36600; 51702; 71045; 74176; 80053; 80184; 80185; 80202; 82803; 83605; 83735; 83880; 84145; 85025; 85027; 87486; 87581; 87633; 87798; 92526; 92610; 93005; 93010; 94640; 94644; 94660; 94760; 96361-59; 96365-59; 96375-59; 99285-25; C9113; J1165; J1650; J1940; J1956; J2405; J2543; J2560; J3370; J7030; J7050